=== PATIENT | male | born 1955 | race American Indian/Alaskan Native ===

== ENCOUNTER 2018-09-14 18:07 | Inpatient (IN) | payer MEDICARE ==
--- NOTE | 2018-09-14 18:27 | Emergency Department Report ---
ED Neuro Deficit HPI - General Chief Complaint: Neuro Symptoms/Deficit Stated Complaint: AMS/N/V Time Seen by Provider: 09/14/18 18:22 Source: patient, EMS Mode of arrival: Wheelchair Limitations: Altered Mental Status - History of Present Illness Initial Comments: Patient is a 62-year-old male presents emergency room originally for nausea vomiting, dizziness and feeling hot. While patient was in triage, patient developed aphasia and altered mental status. Code stroke was initiated in triage and patient was sent directly to CT. Last known well time is 1808. -: Sudden Location: speech, right face - Related Data Home Medications: Home Medications Medication Instructions Recorded Confirmed Last Taken AtorvaSTATin [Lipitor] 40 mg PO DAILY 09/14/18 09/14/18 Unknown AtorvaSTATin [Lipitor] 40 mg PO DAILY 09/14/18 09/14/18 Unknown Bimatoprost [Lumigan 0.01%] 1 drop OU HS 09/14/18 09/14/18 Unknown Carteolol HCl [Carteolol HCl 1%] 1 drop OU BID 09/14/18 09/14/18 Unknown Lisinopril/Hydrochlorothiazide 20 mg PO DAILY 09/14/18 09/14/18 Unknown [Zestoretic 20-12.5 mg] Metoprolol Succinate [Kapspargo 25 mg PO BID 09/14/18 09/14/18 Unknown Sprinkle] Perphenazine 8 mg PO HS 09/14/18 09/14/18 Unknown traZODone [Desyrel] 50 mg PO HS 09/14/18 09/14/18 Unknown Allergies/Adverse Reactions: Allergies Allergy/AdvReac Type Severity Reaction Status Date / Time No Known Allergies Allergy Unverified 09/14/18 18:13 ED Review of Systems ROS: Stated complaint: AMS/N/V Other details as noted in HPI Comment: Unobtainable due to pts medical conditions ED Past Medical Hx - Past Medical History Previous Medical History?: Yes Hx Hypertension: Yes - Surgical History Past Surgical History?: No - Family History Family history: no significant - Social History Smoking Status: Never Smoker Substance Use Type: None - Medications Home Medications: Home Medications Medication Instructions Recorded Confirmed Last Taken Type AtorvaSTATin [Lipitor] 40 mg PO DAILY 09/14/18 09/14/18 Unknown History AtorvaSTATin [Lipitor] 40 mg PO DAILY 09/14/18 09/14/18 Unknown History Bimatoprost [Lumigan 0.01%] 1 drop OU HS 09/14/18 09/14/18 Unknown History Carteolol HCl [Carteolol HCl 1%] 1 drop OU BID 09/14/18 09/14/18 Unknown History Lisinopril/Hydrochlorothiazide 20 mg PO DAILY 09/14/18 09/14/18 Unknown History [Zestoretic 20-12.5 mg] Metoprolol Succinate [Kapspargo 25 mg PO BID 09/14/18 09/14/18 Unknown History Sprinkle] Perphenazine 8 mg PO HS 09/14/18 09/14/18 Unknown History traZODone [Desyrel] 50 mg PO HS 09/14/18 09/14/18 Unknown History ED Neuro Physical Exam - General Limitations: Altered Mental Status General appearance: alert, in no apparent distress Suspected Stroke: Yes - Head Head exam: Present: atraumatic, normocephalic - Eye Eye exam: Present: normal appearance, PERRL Pupils: Present: normal accommodation - ENT ENT exam: Present: mucous membranes moist - Neck Neck exam: Present: normal inspection - Respiratory Respiratory exam: Present: normal lung sounds bilaterally. Absent: respiratory distress, wheezes, rales - Cardiovascular Cardiovascular Exam: Present: regular rate, normal rhythm. Absent: systolic murmur, diastolic murmur, rubs, gallop - GI/Abdominal GI/Abdominal exam: Present: soft, normal bowel sounds. Absent: distended, tenderness, guarding - Rectal Rectal exam: Present: deferred - Extremities Exam Extremities exam: Present: normal inspection - Back Exam Back exam: Present: normal inspection - Neurological Exam Neurological exam: Present: alert, altered - NIHSS Assessment Interval: Baseline 1a. Level of Consciousness: alert/keenly responsive 1b. LOC Questions: answers 1 question correctly 1c. LOC Commands: performs tasks correctly 2. Best Gaze: normal 3. Visual: no visual loss 4. Facial Palsy: partial paralysis 5b. Motor Arm Right: no drift 5a. Motor Arm Left: no drift 6a. Motor Leg Left: no drift 6b. Motor Leg Right: no drift 7. Limb Ataxia: absent 8. Sensory: normal 9. Best Language: severe aphasia 10. Dysarthria: severe dysarthria 11. Extinction/Inattention: no abnormality Total Score: 7 Stroke Severity: Moderate Stroke - Psychiatric Psychiatric exam: Present: normal affect, normal mood - Skin Skin exam: Present: warm, dry, intact, normal color. Absent: rash ED Course Vital Signs 09/14/18 09/14/18 09/14/18 18:51 18:54 18:58 Pulse Rate 89 59 L Pulse Rate [ 59 L Right Arm] Respiratory 14 Rate Respiratory 10 L Rate [Right Arm ] Blood Pressure 146/90 Blood Pressure 140/78 [Left] Blood Pressure 146/90 [Right Arm] O2 Sat by Pulse 97 Oximetry O2 Sat by Pulse 99 Oximetry [ Right Arm] 09/14/18 09/14/18 09/14/18 19:08 19:25 19:40 Pulse Rate 56 L 63 Pulse Rate [ 56 L 65 63 Right Arm] Respiratory 14 11 L Rate Respiratory 14 14 11 L Rate [Right Arm ] Blood Pressure 155/63 Blood Pressure 144/80 [Left] Blood Pressure 144/80 155/63 155/63 [Right Arm] O2 Sat by Pulse 97 99 Oximetry O2 Sat by Pulse 97 99 99 Oximetry [ Right Arm] 09/14/18 09/14/18 09/14/18 19:47 19:48 19:49 Pulse Rate 63 59 L 62 Pulse Rate [ Right Arm] Respiratory 11 L 14 15 Rate Respiratory Rate [Right Arm ] Blood Pressure 214/168 220/199 234/175 Blood Pressure [Left] Blood Pressure [Right Arm] O2 Sat by Pulse 100 100 Oximetry O2 Sat by Pulse Oximetry [ Right Arm] 09/14/18 09/14/18 09/14/18 19:50 19:51 19:53 Pulse Rate 68 65 Pulse Rate [ 68 Right Arm] Respiratory 14 14 Rate Respiratory 14 Rate [Right Arm ] Blood Pressure 234/175 234/175 Blood Pressure [Left] Blood Pressure 234/175 [Right Arm] O2 Sat by Pulse 100 98 Oximetry O2 Sat by Pulse 100 Oximetry [ Right Arm] 09/14/18 09/14/18 09/14/18 19:55 19:59 20:00 Pulse Rate 71 71 76 Pulse Rate [ Right Arm] Respiratory 17 13 16 Rate Respiratory Rate [Right Arm ] Blood Pressure 155/63 155/63 225/176 Blood Pressure [Left] Blood Pressure [Right Arm] O2 Sat by Pulse 99 99 100 Oximetry O2 Sat by Pulse Oximetry [ Right Arm] 09/14/18 09/14/18 09/14/18 20:05 20:09 20:20 Pulse Rate 72 61 Pulse Rate [ 72 64 Right Arm] Respiratory 12 12 Rate Respiratory 12 11 L Rate [Right Arm ] Blood Pressure 225/176 225/176 Blood Pressure [Left] Blood Pressure 225/176 138/81 [Right Arm] O2 Sat by Pulse 100 100 Oximetry O2 Sat by Pulse 100 99 Oximetry [ Right Arm] 09/14/18 09/14/18 20:29 20:44 Pulse Rate Pulse Rate [ 61 70 Right Arm] Respiratory Rate Respiratory 14 14 Rate [Right Arm ] Blood Pressure Blood Pressure [Left] Blood Pressure 138/81 124/67 [Right Arm] O2 Sat by Pulse Oximetry O2 Sat by Pulse 99 99 Oximetry [ Right Arm] - Reevaluation(s) Reevaluation #1: Radiologist called with negative CT scan of head. 09/14/18 18:41 Reevaluation #2: Neurologist seeing the patient and patient will be given TPA. 09/14/18 18:50 Reevaluation #3: Patient's blood pressure is significantly elevated. Patient will be given a nicardipine drip 09/14/18 19:51 Patient's blood pressure has improved. Patient is currently on nicardipine drip 09/14/18 20:27 0 Reevaluation #4: Patient's speech is improving. Patient's blood pressure is stable. 09/14/18 20:45 - Consultations Consultation #1: I discussed the case with neurologist. Neurologist recommends tPA and a CTA be done 09/14/18 19:04 Consultation #2: Hospitalist consult for admission. Hospitalist to admit patient. 09/14/18 21:14 - Lab Data Result diagrams: 09/14/18 19:38 09/14/18 19:38 Lab Results 09/14/18 09/14/18 09/14/18 Range/Units 18:46 19:38 19:38 WBC 10.2 (4.5-11.0) K/mm3 RBC 4.84 (3.65-5.03) M/mm3 Hgb 15.7 H (11.8-15.2) gm/dl Hct 44.3 (35.5-45.6) % MCV 92 (84-94) fl MCH 33 H (28-32) pg MCHC 36 H (32-34) % RDW 12.9 L (13.2-15.2) % Plt Count 208 (140-440) K/mm3 Lymph % (Auto) 18.1 (13.4-35.0) % [place]lette % (Auto) 8.9 H (0.0-7.3) % Eos % (Auto) 0.8 (0.0-4.3) % Baso % (Auto) 0.4 (0.0-1.8) % Lymph # 1.9 (1.2-5.4) K/mm3 Sublette # 0.9 H (0.0-0.8) K/mm3 Eos # 0.1 (0.0-0.4) K/mm3 Baso # 0.0 (0.0-0.1) K/mm3 Seg Neutrophils % 71.8 H (40.0-70.0) % Seg Neutrophils # 7.4 (1.8-7.7) K/mm3 PT 15.1 H (12.2-14.9) Sec. INR 1.22 H (0.87-1.13) APTT 32.4 (24.2-36.6) Sec. Thrombin Time (15.1-19.6) Sec. Sodium (137-145) mmol/L Potassium (3.6-5.0) mmol/L Chloride (98-107) mmol/L Carbon Dioxide (22-30) mmol/L Anion Gap mmol/L BUN (9-20) mg/dL Creatinine (0.8-1.5) mg/dL Estimated GFR ml/min BUN/Creatinine Ratio % Glucose (75-100) mg/dL POC Glucose 78 (70-105) Calcium (8.4-10.2) mg/dL Troponin T (0.00-0.029) ng/mL Urine Color (Yellow) Urine Turbidity (Clear) Urine pH (5.0-7.0) Ur Specific Nordman (1.003-1.030) Urine Protein (Negative) mg/dL Urine Glucose (UA) (Negative) mg/dL Urine Ketones (Negative) mg/dL Urine Blood (Negative) Urine Nitrite (Negative) Urine Bilirubin (Negative) Urine Urobilinogen (<2.0) mg/dL Ur Leukocyte Esterase (Negative) Urine WBC (Auto) (0.0-6.0) /HPF Urine RBC (Auto) (0.0-6.0) /HPF 09/14/18 09/14/18 09/14/18 Range/Units 19:38 19:38 20:35 WBC (4.5-11.0) K/mm3 RBC (3.65-5.03) M/mm3 Hgb (11.8-15.2) gm/dl Hct (35.5-45.6) % MCV (84-94) fl MCH (28-32) pg MCHC (32-34) % RDW (13.2-15.2) % Plt Count (140-440) K/mm3 Lymph % (Auto) (13.4-35.0) % [place] % (Auto) (0.0-7.3) % Eos % (Auto) (0.0-4.3) % Baso % (Auto) (0.0-1.8) % Lymph # (1.2-5.4) K/mm3 Sublette # (0.0-0.8) K/mm3 Eos # (0.0-0.4) K/mm3 Baso # (0.0-0.1) K/mm3 Seg Neutrophils % (40.0-70.0) % Seg Neutrophils # (1.8-7.7) K/mm3 PT (12.2-14.9) Sec. INR (0.87-1.13) APTT (24.2-36.6) Sec. Thrombin Time 24.3 H (15.1-19.6) Sec. Sodium 132 L (137-145) mmol/L Potassium 3.3 L (3.6-5.0) mmol/L Chloride 95.8 L (98-107) mmol/L Carbon Dioxide 20 L (22-30) mmol/L Anion Gap 20 mmol/L BUN 10 (9-20) mg/dL Creatinine 0.9 (0.8-1.5) mg/dL Estimated GFR > 60 ml/min BUN/Creatinine Ratio 11 % Glucose 92 (75-100) mg/dL POC Glucose (70-105) Calcium 8.7 (8.4-10.2) mg/dL Troponin T < 0.010 (0.00-0.029) ng/mL Urine Color Colorless (Yellow) Urine Turbidity Clear (Clear) Urine pH 7.0 (5.0-7.0) Ur Specific Nordman 1.025 (1.003-1.030) Urine Protein <15 mg/dl (Negative) mg/dL Urine Glucose (UA) Neg (Negative) mg/dL Urine Ketones Neg (Negative) mg/dL Urine Blood Neg (Negative) Urine Nitrite Neg (Negative) Urine Bilirubin Neg (Negative) Urine Urobilinogen < 2.0 (<2.0) mg/dL Ur Leukocyte Esterase Neg (Negative) Urine WBC (Auto) < 1.0 (0.0-6.0) /HPF Urine RBC (Auto) 2.0 (0.0-6.0) /HPF - EKG Data -: EKG Interpreted by [facility] EKG shows normal: sinus rhythm, intervals, ST-T waves Rate: normal Interpretation: other (axis deviation) - Radiology Data Radiology results: report reviewed CT angio head INDICATION / CLINICAL INFORMATION: 62 years Male; STROKE ALERT. Technique: Thin cut axial images obtained through the head during IV bolus contrast administration. Sagittal, coronal, and 3 plane MIP reconstructions performed by the technologist. NASCET type criteria used evaluate stenoses. Automated exposure control utilized for radiation reduction purposes. Findings: No priors. No significant narrowing seen in the anterior and posterior circulation. Distal branches of the anterior, middle, and posterior cerebral arteries are fairly symmetric in appearance and number. The most distal portion of the right posterior cerebral artery is not as well-visualized as the left, although no definitive stenosis is appreciated. Certainly, no signs of ischemia are seen in the right occipital lobe. No signs of aneurysm. There are small infundibula associated with the posterior communicating arteries bilaterally. Impression: No significant narrowing appreciated on this CTA of the head. Slight asymmetry seen in the distal [employer] territory on the right, compared with the left-this finding may be a normal variant. CT angio neck INDICATION / CLINICAL INFORMATION: 62 years Male; STROKE ALERT. TECHNIQUE: Thin cut axial images obtained through the head during IV bolus contrast administration. Sagittal, coronal, and 3 plane MIP reconstructions performed by the technologist. NASCET type criteria used evaluate stenoses. All CT scans at this location are performed using CT dose reduction for ALARA by means of automated exposure control. COMPARISON: None available. FINDINGS: Normal aortic arch branching seen. The common and internal carotid arteries are widely patent. Codominant vertebral system is seen with no significant stenosis appreciated. There is osseous foraminal narrowing on the left at C5-6 from uncinate hypertrophy. Similar findings seen on the right at C3-4. Mild disc disease seen at various levels. No definitive signs of significant canal stenosis or cord impingement seen. Small posterior central disc protrusion is seen at C3-4 as well. Remainder the surrounding soft tissues are grossly normal. IMPRESSION: No significant narrowing appreciated on this CTA of the neck. CT head/brain wo con INDICATION / CLINICAL INFORMATION: 62 years Male; neuro deficits <6hrs or sx present upon awakening. TECHNIQUE: Routine CT head without contrast. All CT scans at this location are performed using CT dose reduction for ALARA by means of automated exposure control. COMPARISON: None. FINDINGS: BRAIN / INTRACRANIAL CONTENTS: No acute hemorrhage, mass effect, midline shift, hydrocephalus, or acute, large territorial infarct. No chronic infarct or focal atrophy. Normal brain volume and ventricular/sulcal size for age. No significant white matter abnormality. CRANIOCERVICAL JUNCTION: No significant abnormality. ORBITS: No significant abnormality of visualized orbits. SINUSES / MASTOIDS: Mild mucosal thickening in the ethmoids. ADDITIONAL FINDINGS: None. IMPRESSION: 1. No focal mass, hemorrhage, hydrocephalus, or acute, large territorial infarct. - Medical Decision Making Patient is a 62-year-old male that came in with stroke symptoms. Patient found to have a CVA and given TPA. Patient responded well. Patient's blood pressure elevated placed on nicardipine drip. Patient had a CTA of the neck and head and were both negative for significant stenosis. Patient's CT of the head negative. Patient's EKG normal sinus rhythm with axis deviation. - Differential Diagnosis dizziness. Difficulty speaking. CVA. Weakness. Critical Care Time: Yes Critical care attestation.: If time is entered above; I have spent that time in minutes in the direct care of this critically ill patient, excluding procedure time. Critical Care Time: 55 minutes ED Disposition Clinical Impression: Aphasia, Hypertensive urgency Altered mental state Qualifiers: Altered mental status type: unspecified Qualified Code(s): R41.82 - Altered mental status, unspecified CVA (cerebral vascular accident) Qualifiers: CVA mechanism: unspecified Qualified Code(s): I63.9 - Cerebral infarction, unspecified Disposition: 09 OP ADMIT IP TO THIS HOSP Is pt being admited?: Yes Does the pt Need Aspirin: No Condition: Critical Time of Disposition: :14
[2018-09-14] MEDS ORDERED: ACTIVASE ONE (18:47)
[2018-09-14] MEDS ORDERED: NACL 0.9% IV ONE (18:49)
[2018-09-14] MEDS ORDERED: ACTIVASE IV ONE ×2 (18:49)
--- NOTE | 2018-09-14 18:49 | Cat Scan Report ---
CT head/brain wo con INDICATION / CLINICAL INFORMATION: 62 years Male; neuro deficits <6hrs or sx present upon awakening. TECHNIQUE: Routine CT head without contrast. All CT scans at this location are performed using CT dos e reduction for ALARA by means of automated exposure control. COMPARISON: None. FINDINGS: BRAIN / INTRACRANIAL CONTENTS: No acute hemorrhage, mass effect, midline shift, hydrocephalus, or acu te, large territorial infarct. No chronic infarct or focal atrophy. Normal brain volume and ventricul ar/sulcal size for age. No significant white matter abnormality. CRANIOCERVICAL JUNCTION: No significant abnormality. ORBITS: No significant abnormality of visualized orbits. SINUSES / MASTOIDS: Mild mucosal thickening in the ethmoids. ADDITIONAL FINDINGS: None. IMPRESSION: 1. No focal mass, hemorrhage, hydrocephalus, or acute, large territorial infarct. This exam was performed as part of a code stroke protocol. The exam was completed at 5:33 PM on 2018. The exam was reviewed at 5:[address] Hemphill was notified at 5:42 PM. Signer Name: José Antonio Porter MD, III Signed: 09/14/2018 6:44 PM Workstation Name: [id number]
--- NOTE | 2018-09-14 18:59 | Consultation ---
History of Present Illness History of present illness: [facility] Impression: Patient with aphasia and subtle right nasolabial fold flattening. Concern for LMCA ischemia with possible LVO given cortical signs of aphasia. Patient was unable to give verbal consent for tPA. No surrogate was immediately available. Case discussed with Dr. Hemphill and we are in agreement that the benefit or tPA outweighs the risk and treatment is warranted. He has no obvious contraindication per the history obtained by EMS and his reconciled medications. CTA head/neck will be ordered to eval for LMCA LVO. Differential Diagnosis: 1. Cardioembolic stroke 2. Small vessel disease/lacune 3. Thromboembolic, [id number] mechanism 4. Hypercoagulable state-related infarct 5. Transient ischemic attack 6. Thrombotic mechanism, large artery disease Comments: Door time: 1806 [facility] contacted: 1831 [facility] at bedside: 1834 NIHSS assessment time: 1839 Verbal tpa order: 1842 Pre-tPA BP: 133/82 Finger stick glucose: 76 Needle time: 185 Verbal Consent to tPA: (not applicable as patient is aphasic and cannot consent) I have explained to the patient/family/guardian the nature of the patients condition, the use of tPA fibrinolytic agent, and the benefits to be reasonably expected compared with alternative approaches. I have discussed the likelihood of major risks or complications of this procedure including (if applicable) but not limited to loss of limb function, brain damage, paralysis, hemorrhage, infection, complications from transfusion of blood components, drug reactions, blood clots and loss of life. I have also indicated that with any procedure there is always the possibility of an unexpected complication. I have explained the risks which include: 1. , Stroke or permanent neurologic injury (paralysis, coma, etc) 2. Worsening of stroke symptoms from swelling or bleeding in the brain 3. Bleeding in other parts of the body 4. Need for blood transfusions to replace blood or clotting factors 5. Allergic reaction to medications 6. Other unexpected complications All questions were answered and the patient/family/guardian express underst anding of the treatment plan and consent to the procedure. Our recommendations are outlined below. Recommendations: IV tPA dose = 8.3mg bolus, 74.3 mg infusion (measured weight 91.7kg) Routine post tPA monitoring including neuro checks and blood pressure control during/after treatment Monitor blood pressure Check blood pressure and NIHSS every 15 min for 2 h, then every 30 min for 6 h, and finally every hour for 16 h Systolic greater than 180 OR diastolic greater than 105: Option 1: Labetalol 10 mg IV for 1 - 2 min May repeat or double labetalol every 10 min to maximum dose of 300 mg, or give initial labetalol dose, then start labetalol drip at 2 - 8 mg/min. Option 2: Nicardipine 5 mg/h IV infusion as initial dose and titrate to desired effect by increasing 2.5 mg/h every 5 min to maximum of 15 mg/h; If blood pressure is not controlled by labetolol or nicardipine, consider sodium nitroprusside. Admission to ICU CT brain 24 hours post tPA NPO until swallowing screen performed and passed No antiplatelet agents or anticoagulants (including heparin for DVT prophylaxis) in first 24 hours No Bhakta catheter, nasogastric tube, arterial catheter or central venous catheter for 24 hr, unless absolutely necessary Telemetry Inpatient Neurology Consultation Stroke evaluation as per inpatient neurology recommendations Discussed with ED MD CC: stroke alert History of Present Illness Patient is a62 year old man with a history of HTN, mood disorder who presented to the ED with overheating and feeling lightheaded. His apartment apparently doesn't have AC, so he called EMS feeling like he might pass out from the heat. EMS arrived and he was normally interactive and moving well. Medications were gathered and reconciled (no blood thinners). He was transported to the ED and remained stable. On arrival in triage, he was noted to go aphasic as witnessed during the triage process at 1809. Stroke alert called. Diagnostic CT head wo - nothing acute Exam NIHSS score: 7 Profound mixed aphasia Medical Decision Making: - Extensive number of diagnosis or management options are considered above. - Extensive amount of complex data reviewed. - High risk of complication and/or morbidity or mortality are associated with differential diagnostic considerations above. - There may be Uncertain outcome and increased probability of prolonged functional impairment or high probability of severe prolonged functional impairment associated with some of these differential diagnosis. Medical Data Reviewed: 1.Data reviewed include clinical labs, radiology, Medical Tests; 2.Tests results discussed w/performing or interpreting physician; 3.Obtaining/reviewing old medical records; 4.Obtaining case history from another source; 5.Independent review of image, tracing or specimen. Medical Decision Making: - Extensive number of diagnosis or management options are considered above. - Extensive amount of complex data reviewed. - High risk of complication and/or morbidity or mortality are associated with differential diagnostic considerations above. - There may be Uncertain outcome and increased probability of prolonged functional impairment or high probability of severe prolonged functional impairment associated with some of these differential diagnosis. Medical Data Reviewed: 1.Data reviewed include clinical labs, radiology, Medical Tests; 2.Tests results discussed w/performing or interpreting physician; 3.Obtaining/reviewing old medical records; 4.Obtaining case history from another source; 5.Independent review of image, tracing or specimen. Patient was informed the Neurology Consult would happen via TeleHealth consult by way of interactive audio and video telecommunications and consented to receiving care in this manner. Medications and Allergies Allergies Allergy/AdvReac Type Severity Reaction Status Date / Time No Known Allergies Allergy Unverified 09/14/18 18:13 Active Meds: Active Medications Alteplase, Recombinant (Activase) 8.3 mg 0.09 mg/kg (8.3 mg) IV ONCE ONE; Protocol Stop: 09/14/18 18:50 Alteplase, Recombinant (Activase) 74.3 mg 0.81 mg/kg (74.3 mg) IV ONCE ONE; Protocol Stop: 09/14/18 18:50 - Level of Consciousness 1a. Level of Consciousness: alert/keenly responsive - LOC Questions 1b. LOC Questions: aphasic - LOC Command 1c. LOC Commands: performs no tasks correctly - Best Gaze 2. Best Gaze: normal - Visual 3. Visual: no visual loss - Facial Palsy 4. Facial Palsy: minor paralysis - Motor Arm 5a. Motor Arm Left: no drift 5b. Motor Arm Right: no drift - Motor Leg 6a. Motor Leg Left: no drift 6b. Motor Leg Right: no drift - Limb Ataxia 7. Limb Ataxia: absent - Sensory 8. Sensory: normal - Best Language 9. Best Language: severe aphasia - Dysarthria 10. Dysarthria: normal - Extinction and Inattention 11. Extinction/Inattention: no abnormality - Scoring Total Score: 7 Stroke Severity: Moderate Stroke
[2018-09-14 19:50] LABS: Basophils % (Auto) 0.4 % (0.0-1.8); Eosinophils # (Auto) 0.1 K/mm3 (0.0-0.4); Eosinophils % (Auto) 0.8 % (0.0-4.3); Hematocrit 44.3 % (35.5-45.6); Hemoglobin 15.7 gm/dl (11.8-15.2); Lymphocytes # (Auto) 1.9 K/mm3 (1.2-5.4); Lymphocytes % (Auto) 18.1 % (13.4-35.0); Mean Corpuscular HGB Conc 36 % (32-34); Mean Corpuscular Volume 92 fl (84-94); Monocytes # (Auto) 0.9 K/mm3 (0.0-0.8); Monocytes % (Auto) 8.9 % (0.0-7.3); Platelet Count 208 K/mm3 (140-440); Red Blood Count 4.84 M/mm3 (3.65-5.03); Red Cell Distribution Width 12.9 % (13.2-15.2)
[2018-09-14] MEDS ORDERED: CARDENE 50 MG in NACL 0.9% 250ML 230 ML IV SCH (20:00)
[2018-09-14 20:02] LABS: INR 1.22 (0.87-1.13)
[2018-09-14 20:03] LABS: Partial Thromboplastin Time 32.4 Sec. (24.2-36.6)
[2018-09-14 20:12] LABS: BUN/Creatinine Ratio 11; Blood Urea Nitrogen 10 mg/dL (9-20); Calcium 8.7 mg/dL (8.4-10.2); Hemolysis Index 9
--- NOTE | 2018-09-14 20:17 | Cat Scan Report ---
CT angio head INDICATION / CLINICAL INFORMATION: 62 years Male; STROKE ALERT. Technique: Thin cut axial images obtained through the head during IV bolus contrast administration. S agittal, coronal, and 3 plane MIP reconstructions performed by the technologist. NASCET type criteria used evaluate stenoses. Automated exposure control utilized for radiation reduction purposes. Findings: No priors. No significant narrowing seen in the anterior and posterior circulation. Distal branches of the anterior, middle, and posterior cerebral arteries are fairly symmetric in appe arance and number. The most distal portion of the right posterior cerebral artery is not as well-visu alized as the left, although no definitive stenosis is appreciated. Certainly, no signs of ischemia a re seen in the right occipital lobe. No signs of aneurysm. There are small infundibula associated with the posterior communicating arterie s bilaterally. Impression: No significant narrowing appreciated on this CTA of the head. Slight asymmetry seen in the distal [employer] territory on the right, compared with the left-this finding may be a normal variant. Signer Name: José Antonio Porter MD, III Signed: 09/14/2018 8:12 PM Workstation Name: [id number]
[2018-09-14 20:56] LABS: Bilirubin,Urine NEG (Negative); Blood,Urine NEG (Negative); Color,Urine Colorless (Yellow); Protein,Urine <15 mg/dL mg/dL (Negative); Urobilinogen,Urine < 2.0 mg/dL (<2.0)
--- NOTE | 2018-09-14 20:57 | Cat Scan Report ---
CT angio neck INDICATION / CLINICAL INFORMATION: 62 years Male; STROKE ALERT. TECHNIQUE: Thin cut axial images obtained through the head during IV bolus contrast administration. S agittal, coronal, and 3 plane MIP reconstructions performed by the technologist. NASCET type criteria used evaluate stenoses. All CT scans at this location are performed using CT dose reduction for ALAR A by means of automated exposure control. COMPARISON: None available. FINDINGS: Normal aortic arch branching seen. The common and internal carotid arteries are widely patent. Codominant vertebral system is seen with no significant stenosis appreciated. There is osseous foraminal narrowing on the left at C5-6 from uncinate hypertrophy. Similar findings seen on the right at C3-4. Mild disc disease seen at various levels. No definitive signs of significa nt canal stenosis or cord impingement seen. Small posterior central disc protrusion is seen at C3-4 a s well. Remainder the surrounding soft tissues are grossly normal. IMPRESSION: No significant narrowing appreciated on this CTA of the neck. Signer Name: José Antonio Porter MD, III Signed: 09/14/2018 8:52 PM Workstation Name: [id number]
[2018-09-14 20:58] LABS: WBC,Urine < 1.0 /HPF (0.0-6.0)
--- NOTE | 2018-09-14 21:06 | History and Physical Report ---
History of Present Illness Chief complaint: Unresponsive History of present illness: 62 YO Male with Obesity, HTN presents to ED for evaluation. Pt is unresponsive at time of my evaluation and unable to provide history. Pt history taken from EMS and ED staff. As per staff the patient called EMS for Nausea, and Vomiting. Upon EMS arrival the patient was found to be in distress. Pt subsequently reported having numbness, weakness, and developed dysarthria in the presence of EMS. Pt subsequently became confused. A code stroke was called and the patient transported to [facility]. Pt seen and evaluated in ED and found to have symptoms consistent with Acute CVA. Teleneurology consulted and patient was treated with TPA. Neurology consulted in ED. Pt admitted to ICU and initiated on CVA protocol. No further history obtainable at time of exam. NO prior admission for review. All listed medication reconciled at time of admission. Past History Past Medical History: hypertension, other (Obesity) Past Surgical History: No surgical history, Other (Reviewed: UTO) Social history: single. denies: smoking, alcohol abuse, prescription drug abuse Family history: no significant family history (Reviewed: UTO) Medications and Allergies Allergies Allergy/AdvReac Type Severity Reaction Status Date / Time No Known Allergies Allergy Unverified 09/14/18 18:13 Home Medications Medication Instructions Recorded Confirmed Last Taken Type AtorvaSTATin [Lipitor] 40 mg PO DAILY 09/14/18 09/14/18 Unknown History AtorvaSTATin [Lipitor] 40 mg PO DAILY 09/14/18 09/14/18 Unknown History Bimatoprost [Lumigan 0.01%] 1 drop OU HS 09/14/18 09/14/18 Unknown History Carteolol HCl [Carteolol HCl 1%] 1 drop OU BID 09/14/18 09/14/18 Unknown History Lisinopril/Hydrochlorothiazide 20 mg PO DAILY 09/14/18 09/14/18 Unknown History [Zestoretic 20-12.5 mg] Metoprolol Succinate [Kapspargo 25 mg PO BID 09/14/18 09/14/18 Unknown History Sprinkle] Perphenazine 8 mg PO HS 09/14/18 09/14/18 Unknown History traZODone [Desyrel] 50 mg PO HS 09/14/18 09/14/18 Unknown History Active Meds: Active Medications Nicardipine HCl 50 mg/ Sodium (Chloride) 250 mls @ 25 mls/hr IV TITR RANI; Protocol Last Titration: 09/14/18 20:40 Dose: 4 mg/hr, 20 mls/hr Documented by: Review of Systems ROS unobtainable: due to mental status Exam - Constitutional Vitals: Temp Pulse Resp BP Pulse Ox 70 14 124/67 99 09/14/18 20:44 09/14/18 20:44 09/14/18 20:44 09/14/18 20:44 General appearance: Present: mild distress - EENT Eyes: Present: miosis ENT: hearing decreased - Neck Neck: Present: supple, normal ROM - Respiratory Respiratory effort: normal Respiratory: bilateral: CTA - Cardiovascular Heart Sounds: Present: S1 & S2. Absent: rub, click - Extremities Extremities: pulses symmetrical, No edema Peripheral Pulses: within normal limits - Abdominal General gastrointestinal: Present: soft, non-tender, non-distended, normal bowel sounds Male genitourinary: Present: normal - Integumentary Integumentary: Present: clear, warm, dry - Musculoskeletal Musculoskeletal: generalized weakness - Psychiatric Psychiatric: no appropriate mood/affect, no intact judgment & insight, no memory intact - Neurologic Neurologic: no CNII-XII intact, focal deficits, no moves all extremities, no gait normal Results - Labs CBC & Chem 7: 09/14/18 19:38 09/14/18 19:38 Labs: Abnormal lab results 09/14/18 09/14/18 09/14/18 Range/Units 19:38 19:38 19:38 Hgb 15.7 H (11.8-15.2) gm/dl MCH 33 H (28-32) pg MCHC 36 H (32-34) % RDW 12.9 L (13.2-15.2) % [place] % (Auto) 8.9 H (0.0-7.3) % [place] # 0.9 H (0.0-0.8) K/mm3 Seg Neutrophils % 71.8 H (40.0-70.0) % PT 15.1 H (12.2-14.9) Sec. INR 1.22 H (0.87-1.13) Thrombin Time (15.1-19.6) Sec. Sodium 132 L (137-145) mmol/L Potassium 3.3 L (3.6-5.0) mmol/L Chloride 95.8 L (98-107) mmol/L Carbon Dioxide 20 L (22-30) mmol/L 09/14/18 Range/Units 19:38 Hgb (11.8-15.2) gm/dl MCH (28-32) pg MCHC (32-34) % RDW (13.2-15.2) % [place] % (Auto) (0.0-7.3) % [place] # (0.0-0.8) K/mm3 Seg Neutrophils % (40.0-70.0) % PT (12.2-14.9) Sec. INR (0.87-1.13) Thrombin Time 24.3 H (15.1-19.6) Sec. Sodium (137-145) mmol/L Potassium (3.6-5.0) mmol/L Chloride (98-107) mmol/L Carbon Dioxide (22-30) mmol/L Assessment and Plan - Patient Problems (1) CVA (cerebral vascular accident) Current Visit: Yes Status: Acute Qualifiers: CVA mechanism: unspecified Qualified Code(s): I63.9 - Cerebral infarction, unspecified Plan to address problem: CVA Protocol: Admit to ICU, TPA administered in ED, Neuro check, seizure precautions, CT Head, MRI Brain, MRA Brain, Echo, Carotid Doppler, Antiplatelet therapy in 24 hrs s/p tpa, lipid panel, neurology consulted, teleneurology consulted in ED, PT/OT/Speech therapy. The high probability of a clinically significant, sudden or life threatening deterioration of the [neuro,resp, ] system(s) required my full and direct attention, intervention and personal management. The aggregate critical care time was [65] minutes. This time is in addition to time spent performing reported procedures but includes the following: [x] Data Review and interpretation [x] Patient assessment and monitoring of vital signs [x] Documentation [x] Medication orders and management (2) Encephalopathy Current Visit: Yes Status: Acute Plan to address problem: CT head, neuro check, seizure precautions, supportive care. (3) Aphasia Current Visit: Yes Status: Acute Plan to address problem: Secondary to CVA, Speech consulted, (4) DVT prophylaxis Current Visit: Yes Status: Acute Plan to address problem: SCD to BLE while in bed,
[2018-09-14] MEDS ORDERED: MILK OF MAGNESIA PO PRN (21:07)
[2018-09-14] MEDS ORDERED: DULCOLAX PR PRN (21:07)
[2018-09-14] MEDS ORDERED: REGLAN PO PRN (21:07)
[2018-09-14] MEDS ORDERED: ZOFRAN IV PRN (21:07)
[2018-09-14] MEDS ORDERED: TYLENOL PO PRN (21:07)
[2018-09-14] MEDS ORDERED: SODIUM CHLORIDE FLUSH SYRINGE 10 ML IV PRN (21:07)
[2018-09-14] MEDS ORDERED: PHENERGAN PR PRN (21:07)
[2018-09-14] MEDS ORDERED: DESYREL PO ONE (22:15)
[2018-09-14] MEDS ORDERED: ZESTRIL ONE (22:15)
[2018-09-14] MEDS ORDERED: TYLENOL ONE (22:15)
[2018-09-14] MEDS: DESYREL PO SCH (22:16)
[2018-09-14] MEDS: CARTEOLOL HCL OP SCH (23:26)
[2018-09-14] MEDS: TRILAFON PO SCH (23:28)
[2018-09-15] MEDS ORDERED: ASPIRIN PO SCH (10:00)
[2018-09-15 10:20] LABS: Chol/HDL Ratio 3.7 %
[2018-09-15] MEDS: CARTEOLOL HCL OP SCH ×2 (10:35→21:22)
--- NOTE | 2018-09-15 12:46 | Consultation ---
History of Present Illness Consult date: 09/15/18 Requesting physician: MATT LUKE Reason for consult: other (Acute CVA) History of present illness: PULMONARY/CCM CONSULT NOTE (Full dictation # [id number]) Please see dictated notes for full details Past History Past Medical History: hypertension, other (Obesity) Past Surgical History: No surgical history, Other (Reviewed: UTO) Social history: single. denies: smoking, alcohol abuse, prescription drug abuse Family history: no significant family history (Reviewed: UTO) Medications and Allergies Allergies Allergy/AdvReac Type Severity Reaction Status Date / Time No Known Allergies Allergy Unverified 09/14/18 18:13 Home Medications Medication Instructions Recorded Confirmed Last Taken Type AtorvaSTATin [Lipitor] 40 mg PO DAILY 09/14/18 09/14/18 Unknown History AtorvaSTATin [Lipitor] 40 mg PO DAILY 09/14/18 09/14/18 Unknown History Bimatoprost [Lumigan 0.01%] 1 drop OU HS 09/14/18 09/14/18 Unknown History Carteolol HCl [Carteolol HCl 1%] 1 drop OU BID 09/14/18 09/14/18 Unknown History Lisinopril/Hydrochlorothiazide 20 mg PO DAILY 09/14/18 09/14/18 Unknown History [Zestoretic 20-12.5 mg] Metoprolol Succinate [Kapspargo 25 mg PO BID 09/14/18 09/14/18 Unknown History Sprinkle] Perphenazine 8 mg PO HS 09/14/18 09/14/18 Unknown History traZODone [Desyrel] 50 mg PO HS 09/14/18 09/14/18 Unknown History Active Meds: Active Medications Acetaminophen (Tylenol) 650 mg PO Q4H PRN PRN Reason: Pain, Mild (1-3) Last Admin: 09/14/18 22:16 Dose: 650 mg Documented by: Aspirin (Aspirin) 325 mg PO QDAY [facility] Atorvastatin Calcium (Lipitor) 40 mg PO QHS [facility] Last Admin: 09/14/18 22:16 Dose: 40 mg Documented by: Bisacodyl (Dulcolax) 10 mg MS QDAY PRN PRN Reason: Constipation Enoxaparin Sodium (Lovenox) 40 mg SUB-Q QDAY@2200 RANI Latanoprost (Latanoprost 0.005%) 1 drops OU QHS [facility] Magnesium Hydroxide (Milk Of Magnesia) 30 ml PO Q4H PRN PRN Reason: Constipation Metoclopramide HCl (Reglan) 10 mg PO Q6H PRN PRN Reason: Nausea And Vomiting Miscellaneous Medication (Carteolol Hcl [Carteolol Hcl 1%]) 1 drop OP BID [facility] Last Admin: 09/15/18 10:35 Dose: 1 drop Documented by: Ondansetron HCl (Zofran) 4 mg IV Q8H PRN PRN Reason: Nausea And Vomiting Perphenazine (Trilafon) 8 mg PO [facility] Last Admin: 09/14/18 23:28 Dose: 8 mg Documented by: Potassium Chloride (K-Dur) 40 meq PO ONCE ONE Stop: 09/15/18 13:01 Promethazine HCl (Phenergan) 25 mg MS Q6H PRN PRN Reason: Nausea And Vomiting Sodium Chloride (Sodium Chloride Flush Syringe 10 Ml) 10 ml IV PRN PRN PRN Reason: LINE FLUSH Trazodone HCl (Desyrel) 50 mg PO [facility] Last Admin: 09/14/18 22:16 Dose: 50 mg Documented by: Physical Examination Vital signs: Vital Signs Pulse BP 89 146/90 09/14/18 18:51 09/14/18 18:51 Results - Laboratory Findings CBC and BMP: 09/14/18 19:38 09/14/18 19:38 PT/INR, D-dimer PT 15.1 Sec. (12.2-14.9) H 09/14/18 19:38 INR 1.22 (0.87-1.13) H 09/14/18 19:38 Abnormal lab findings: Abnormal Labs 09/14/18 09/14/18 09/14/18 19:38 19:38 19:38 Hgb 15.7 H MCH 33 H MCHC 36 H RDW 12.9 L [place] % (Auto) 8.9 H [place] # 0.9 H Seg Neutrophils % 71.8 H PT 15.1 H INR 1.22 H Thrombin Time Sodium 132 L Potassium 3.3 L Chloride 95.8 L Carbon Dioxide 20 L Triglycerides HDL Cholesterol 09/14/18 09/15/18 19:38 09:45 Hgb MCH MCHC RDW [place] % (Auto) [place] # Seg Neutrophils % PT INR Thrombin Time 24.3 H Sodium Potassium Chloride Carbon Dioxide Triglycerides 152 H HDL Cholesterol 31 L
[2018-09-15] MEDS ORDERED: K-DUR PO ONE (13:00)
--- NOTE | 2018-09-15 13:52 | Progress Note ---
Assessment and Plan / CVA (cerebral vascular accident) CVA Protocol: Admitted to ICU, TPA administered in ED, cont Neuro check, seizure precautions, CT Head no acute infract, MRI Brain, Echo, Carotid Doppler, pending cont Antiplatelet therapy in 24 hrs s/p tpa, neurology consulted, ordered PT/OT/Speech therapy. transfer to tele today / Encephalopathy now resolved, follow clinically /Hypokalemia, repleted /Aphasia, resolved / DVT prophylaxis SCD to BLE while in bed, Subjective Date of service: 09/15/18 Interval history: Patient seen and examined denies any focal weakness tolerating diet, MRI pending Objective - Constitutional Vitals: Vital Signs - 12hr 09/15/18 09/15/18 09/15/18 02:00 02:04 02:11 Temperature Pulse Rate 62 64 Pulse Rate [ From Monitor] Pulse Rate [ 75 Right Arm] Respiratory 14 12 Rate Respiratory 12 Rate [Right Arm ] Blood Pressure 106/53 96/52 Blood Pressure 105/51 [Right Arm] O2 Sat by Pulse 97 95 Oximetry O2 Sat by Pulse 97 Oximetry [ Right Arm] 09/15/18 09/15/18 09/15/18 02:21 02:30 02:41 Temperature Pulse Rate 61 75 54 L Pulse Rate [ From Monitor] Pulse Rate [ Right Arm] Respiratory 12 12 11 L Rate Respiratory Rate [Right Arm ] Blood Pressure 96/52 105/51 105/51 Blood Pressure [Right Arm] O2 Sat by Pulse 95 97 99 Oximetry O2 Sat by Pulse Oximetry [ Right Arm] 09/15/18 09/15/18 09/15/18 02:51 03:00 03:04 Temperature Pulse Rate 57 L 53 L Pulse Rate [ From Monitor] Pulse Rate [ 53 L Right Arm] Respiratory 12 11 L Rate Respiratory 11 L Rate [Right Arm ] Blood Pressure 105/51 97/42 Blood Pressure 97/42 [Right Arm] O2 Sat by Pulse 93 97 Oximetry O2 Sat by Pulse 98 Oximetry [ Right Arm] 09/15/18 09/15/18 09/15/18 03:11 03:21 03:31 Temperature Pulse Rate 54 L 67 58 L Pulse Rate [ From Monitor] Pulse Rate [ Right Arm] Respiratory 11 L 14 16 Rate Respiratory Rate [Right Arm ] Blood Pressure 105/51 105/51 103/41 Blood Pressure [Right Arm] O2 Sat by Pulse 97 98 100 Oximetry O2 Sat by Pulse Oximetry [ Right Arm] 09/15/18 09/15/18 09/15/18 03:41 03:51 04:00 Temperature 98.8 F Pulse Rate 59 L 63 61 Pulse Rate [ From Monitor] Pulse Rate [ Right Arm] Respiratory 14 11 L 12 Rate Respiratory Rate [Right Arm ] Blood Pressure 103/41 103/41 82/35 Blood Pressure [Right Arm] O2 Sat by Pulse 97 99 98 Oximetry O2 Sat by Pulse Oximetry [ Right Arm] 09/15/18 09/15/18 09/15/18 04:04 04:11 04:21 Temperature Pulse Rate 64 68 Pulse Rate [ From Monitor] Pulse Rate [ 61 Right Arm] Respiratory 11 L 12 Rate Respiratory 12 Rate [Right Arm ] Blood Pressure 82/35 82/35 Blood Pressure 82/35 [Right Arm] O2 Sat by Pulse 98 97 98 Oximetry O2 Sat by Pulse 98 Oximetry [ Right Arm] 09/15/18 09/15/18 09/15/18 04:30 04:41 04:51 Temperature Pulse Rate 66 53 L 55 L Pulse Rate [ From Monitor] Pulse Rate [ Right Arm] Respiratory 10 L 12 9 L Rate Respiratory Rate [Right Arm ] Blood Pressure 86/36 86/36 89/57 Blood Pressure [Right Arm] O2 Sat by Pulse 98 97 97 Oximetry O2 Sat by Pulse Oximetry [ Right Arm] 09/15/18 09/15/18 09/15/18 05:00 05:11 05:21 Temperature Pulse Rate 58 L 52 L 60 Pulse Rate [ From Monitor] Pulse Rate [ Right Arm] Respiratory 16 11 L 14 Rate Respiratory Rate [Right Arm ] Blood Pressure 90/63 90/63 97/64 Blood Pressure [Right Arm] O2 Sat by Pulse 98 98 93 Oximetry O2 Sat by Pulse Oximetry [ Right Arm] 09/15/18 09/15/18 09/15/18 05:31 05:41 05:51 Temperature Pulse Rate 60 58 L 59 L Pulse Rate [ From Monitor] Pulse Rate [ Right Arm] Respiratory 14 18 17 Rate Respiratory Rate [Right Arm ] Blood Pressure 82/10 82/10 82/10 Blood Pressure [Right Arm] O2 Sat by Pulse 97 97 99 Oximetry O2 Sat by Pulse Oximetry [ Right Arm] 09/15/18 09/15/18 09/15/18 06:00 06:01 06:04 Temperature Pulse Rate 73 50 L Pulse Rate [ From Monitor] Pulse Rate [ 50 L Right Arm] Respiratory 15 14 Rate Respiratory 14 Rate [Right Arm ] Blood Pressure 108/66 Blood Pressure 108/66 [Right Arm] O2 Sat by Pulse 96 98 Oximetry O2 Sat by Pulse 96 Oximetry [ Right Arm] 09/15/18 09/15/18 09/15/18 06:10 06:20 06:30 Temperature Pulse Rate 56 L 54 L 65 Pulse Rate [ From Monitor] Pulse Rate [ Right Arm] Respiratory 11 L 12 12 Rate Respiratory Rate [Right Arm ] Blood Pressure 108/66 108/66 113/69 Blood Pressure [Right Arm] O2 Sat by Pulse 99 95 96 Oximetry O2 Sat by Pulse Oximetry [ Right Arm] 09/15/18 09/15/18 09/15/18 06:41 06:51 07:00 Temperature Pulse Rate 53 L 58 L 56 L Pulse Rate [ From Monitor] Pulse Rate [ 59 L Right Arm] Respiratory 10 L 10 L 12 Rate Respiratory 15 Rate [Right Arm ] Blood Pressure 113/69 113/69 112/66 Blood Pressure 112/66 [Right Arm] O2 Sat by Pulse 97 99 96 Oximetry O2 Sat by Pulse 96 Oximetry [ Right Arm] 09/15/18 09/15/18 09/15/18 07:11 07:21 07:30 Temperature Pulse Rate 55 L 63 54 L Pulse Rate [ From Monitor] Pulse Rate [ Right Arm] Respiratory 11 L 14 12 Rate Respiratory Rate [Right Arm ] Blood Pressure 112/66 112/66 101/61 Blood Pressure [Right Arm] O2 Sat by Pulse 98 98 97 Oximetry O2 Sat by Pulse Oximetry [ Right Arm] 09/15/18 09/15/18 09/15/18 07:41 07:51 08:00 Temperature 98.4 F Pulse Rate 55 L 53 L 60 Pulse Rate [ 58 L From Monitor] Pulse Rate [ 58 L Right Arm] Respiratory 15 15 13 Rate Respiratory 14 Rate [Right Arm ] Blood Pressure 101/61 101/61 109/68 Blood Pressure 109/68 [Right Arm] O2 Sat by Pulse 98 97 98 Oximetry O2 Sat by Pulse 97 Oximetry [ Right Arm] 09/15/18 09/15/18 09/15/18 08:11 08:21 08:30 Temperature Pulse Rate 81 52 L 52 L Pulse Rate [ From Monitor] Pulse Rate [ Right Arm] Respiratory 13 13 11 L Rate Respiratory Rate [Right Arm ] Blood Pressure 109/68 109/68 99/65 Blood Pressure [Right Arm] O2 Sat by Pulse 98 98 99 Oximetry O2 Sat by Pulse Oximetry [ Right Arm] 09/15/18 09/15/18 09/15/18 08:41 08:51 09:00 Temperature Pulse Rate 60 60 65 Pulse Rate [ From Monitor] Pulse Rate [ 57 L Right Arm] Respiratory 12 17 10 L Rate Respiratory 13 Rate [Right Arm ] Blood Pressure 99/65 99/65 108/65 Blood Pressure 108/65 [Right Arm] O2 Sat by Pulse 97 98 99 Oximetry O2 Sat by Pulse 98 Oximetry [ Right Arm] 09/15/18 09/15/18 09/15/18 09:11 09:21 09:30 Temperature Pulse Rate 59 L 60 56 L Pulse Rate [ From Monitor] Pulse Rate [ Right Arm] Respiratory 15 10 L 21 Rate Respiratory Rate [Right Arm ] Blood Pressure 108/65 108/65 110/65 Blood Pressure [Right Arm] O2 Sat by Pulse 99 100 100 Oximetry O2 Sat by Pulse Oximetry [ Right Arm] 09/15/18 09/15/18 09/15/18 09:41 09:51 10:00 Temperature Pulse Rate 54 L 58 L 60 Pulse Rate [ 60 From Monitor] Pulse Rate [ 56 L Right Arm] Respiratory 11 L 18 18 Rate Respiratory 22 Rate [Right Arm ] Blood Pressure 110/65 110/65 115/74 Blood Pressure 115/74 [Right Arm] O2 Sat by Pulse 99 100 100 Oximetry O2 Sat by Pulse 100 Oximetry [ Right Arm] 09/15/18 09/15/18 09/15/18 10:11 10:21 11:00 Temperature Pulse Rate 56 L 55 L Pulse Rate [ From Monitor] Pulse Rate [ 56 L Right Arm] Respiratory 17 20 Rate Respiratory 22 Rate [Right Arm ] Blood Pressure 115/74 115/74 Blood Pressure 115/74 [Right Arm] O2 Sat by Pulse 100 99 Oximetry O2 Sat by Pulse 100 Oximetry [ Right Arm] 09/15/18 11:59 Temperature Pulse Rate Pulse Rate [ From Monitor] Pulse Rate [ Right Arm] Respiratory Rate Respiratory Rate [Right Arm ] Blood Pressure Blood Pressure [Right Arm] O2 Sat by Pulse 99 Oximetry O2 Sat by Pulse Oximetry [ Right Arm] General appearance: Present: no acute distress, well-nourished - EENT Eyes: PERRL, EOM intact ENT: hearing intact, clear oral mucosa Ears: bilateral: normal - Neck Neck: supple, normal ROM - Respiratory Respiratory effort: normal Respiratory: bilateral: CTA - Cardiovascular Rhythm: regular Heart Sounds: Present: S1 & S2. Absent: gallop, rub Extremities: pulses intact, No edema, normal color, Full ROM - Gastrointestinal General gastrointestinal: Present: soft, non-tender, non-distended, normal bowel sounds - Integumentary Integumentary: clear, warm, dry - Musculoskeletal Musculoskeletal: 1, strength equal bilaterally - Neurologic Neurologic: moves all extremities - Psychiatric Psychiatric: memory intact, appropriate mood/affect, intact judgment & insight - Labs CBC & Chem 7: 09/14/18 19:38 09/14/18 19:38 Labs: Abnormal lab results 09/14/18 09/14/18 09/14/18 Range/Units 19:38 19:38 19:38 Hgb 15.7 H (11.8-15.2) gm/dl MCH 33 H (28-32) pg MCHC 36 H (32-34) % RDW 12.9 L (13.2-15.2) % [place] % (Auto) 8.9 H (0.0-7.3) % [place] # 0.9 H (0.0-0.8) K/mm3 Seg Neutrophils % 71.8 H (40.0-70.0) % PT 15.1 H (12.2-14.9) Sec. INR 1.22 H (0.87-1.13) Thrombin Time (15.1-19.6) Sec. Sodium 132 L (137-145) mmol/L Potassium 3.3 L (3.6-5.0) mmol/L Chloride 95.8 L (98-107) mmol/L Carbon Dioxide 20 L (22-30) mmol/L Triglycerides (2-149) mg/dL HDL Cholesterol (40-59) mg/dL 09/14/18 09/15/18 Range/Units 19:38 09:45 Hgb (11.8-15.2) gm/dl MCH (28-32) pg MCHC (32-34) % RDW (13.2-15.2) % [place] % (Auto) (0.0-7.3) % [place] # (0.0-0.8) K/mm3 Seg Neutrophils % (40.0-70.0) % PT (12.2-14.9) Sec. INR (0.87-1.13) Thrombin Time 24.3 H (15.1-19.6) Sec. Sodium (137-145) mmol/L Potassium (3.6-5.0) mmol/L Chloride (98-107) mmol/L Carbon Dioxide (22-30) mmol/L Triglycerides 152 H (2-149) mg/dL HDL Cholesterol 31 L (40-59) mg/dL
--- NOTE | 2018-09-15 14:07 | Magnetic Resonance Report ---
MRI BRAIN WITHOUT CONTRAST INDICATION / CLINICAL INFORMATION: Right-sided weakness. TECHNIQUE: Multiplanar, multisequence MR images of the brain were obtained. COMPARISON: None available. FINDINGS: BRAIN / INTRACRANIAL CONTENTS: No acute ischemia, acute hemorrhage, mass effect, midline shift, or hy drocephalus. No chronic infarct or significant atrophy. No significant demyelinating changes. Ventri cular and cisternal size appears normal for the patient's age. CRANIOCERVICAL JUNCTION: No significant abnormality. VASCULAR FLOW-VOIDS: No significant abnormality. ORBITS: No significant abnormality of visualized orbits. SINUSES / MASTOIDS: No significant abnormality of visualized sinuses and mastoid air cells. ADDITIONAL FINDINGS: None. IMPRESSION: 1. No evidence of acute infarct or other acute intracranial abnormality. Signer Name: Pratik Kemp MD Signed: 09/15/2018 2:03 PM Workstation Name: [id number]
--- NOTE | 2018-09-15 14:52 | Vascular Lab Report ---
BILATERAL CAROTID DOPPLER ULTRASOUND INDICATION : stroke TECHNIQUE: Grayscale and color Doppler imaging performed through the neck. COMPARISON: None FINDINGS: Right: There is minimal calcified plaque in the carotid bulb. Peak systolic velocity in the CCA is 91 cm/s with end-diastolic velocity of 10 cm/s. Peak systolic velocity in the proximal ICA is 73 cm/s with end-diastolic velocity of 24 cm/s. ICA to CCA ratio is less than 2. There is antegrade flow in the ECA and the vertebral artery. Left: There is minimal calcified plaque in the carotid bulb. Peak systolic velocity in the CCA is 89 cm/s with end-diastolic velocity of 9 cm/s. Peak systolic velocity in the proximal ICA is 81 cm/s wit h end-diastolic velocity of 24 cm/s. ICA to CCA ratio is less than 2. There is antegrade flow in the ECA and the vertebral artery. IMPRESSION: No hemodynamically significant stenosis by NASCET criteria. Signer Name: Pranay Flannery Jr, MD Signed: 09/15/2018 2:47 PM Workstation Name: [id number]
--- NOTE | 2018-09-15 16:28 | Consultation ---
History of Present Illness Consult date: 09/15/18 Requesting physician: MATT LUKE Reason for Consult: altered mental status, aphasia Chief complaint: episode of right arm numbness, then loss of memory even of his name, left temporal headache History of present illness: This 62 year old right handed white male states that at 4 or 5 pm yesterday, he noted right arm numbness hand to elbow lasting 10 min, then could not give his name for 2 hours, then gradual improvement. Had some left church headache with some nausea starting 8 pm that day, and some this morning but gone now. Was in home of friend with 83 degrees environment, describes orthostasis. Recalls repetitive speech and some retrograde amnesia yesterday. Has schizophrenia, off all meds for a month, meds were not ready when he went to get them. Was never on aspirin. Homeless then staying with friend for a month but sometimes power out since friend can't always pay for power. Can't tell me name of med for his schizophrenia but perphenazine is listed and is already ordered. MRI negative except some periventricular FLAIR signal radial to and adjacent to right occipital horn. CTAs of head and neck ok. PMH: Medical: schizophrenia, glaucoma, hyperlipidemia, hypertension Surgeries: none SH: no tobacco since 1979, no ETOH, no illicit drugs, single no children, retired from [employer] FH: all 4 GPs with CVAs, mother with CVA. Unknown if hypertension, DM in brother, neg for epilepsy ROS: sinus headaches, dizziness as noted, unknown if snoring, sometimes naps but not dozing or sleepy driving. Memory usually ok, no paresthesias usually. General Physical Exam: General appearance: well developed but obese mid 60's white male in NAD. HEENT: intact. Neck: supple, no bruits. Heart: very distant sounds, no murmur heard. Extremities: 2+ DPs, no edema. Neurologic Exam: Mental Status: AAOX3, speech clear, names well, info good, some calculation err ors but not good at math, can't do 5+7, can't spell backwards correctly, abstracts well, no R-L confusion. Cranial Nerves: card full, no pap, (+) SVPs, small pupils but PERRLA, EOMs full, sensory ok, no facial weakness, Paz midline, gags positive, shrug 5 X 2, tongue midline. Cerebellar: finger to nose and heel to marmolejo intact. Sensory: intact to primary modalities and DSS. Motor Upper Extremities: no drift or pronation, rig manager are 5, Saadia are normal. Motor Lower Extremities: no leg lag: IP, quads, anterior tibials and gastrocnemii are 5. Saadia are normal. Reflexes: Jaw jerk and snout are negative, palmomental strongly positive left but negative right. Triceps, biceps and brachioradialis are trace. Dante's is negative X 2. Knee jerks are trace to 1, ankle jerks are 1+ right and trace left becoming 2 left with reinforcement. Toes are upgoing right and downgoing left to Babinski testing. Past History Past Medical History: hypertension, other (Obesity) Past Surgical History: No surgical history, Other (Reviewed: UTO) Social history: single. denies: smoking, alcohol abuse, prescription drug abuse Family history: no significant family history (Reviewed: UTO) Medications and Allergies Allergies Allergy/AdvReac Type Severity Reaction Status Date / Time No Known Allergies Allergy Unverified 09/14/18 18:13 Home Medications Medication Instructions Recorded Confirmed Last Taken Type AtorvaSTATin [Lipitor] 40 mg PO DAILY 09/14/18 09/14/18 Unknown History AtorvaSTATin [Lipitor] 40 mg PO DAILY 09/14/18 09/14/18 Unknown History Bimatoprost [Lumigan 0.01%] 1 drop OU HS 09/14/18 09/14/18 Unknown History Carteolol HCl [Carteolol HCl 1%] 1 drop OU BID 09/14/18 09/14/18 Unknown History Lisinopril/Hydrochlorothiazide 20 mg PO DAILY 09/14/18 09/14/18 Unknown History [Zestoretic 20-12.5 mg] Metoprolol Succinate [Kapspargo 25 mg PO BID 09/14/18 09/14/18 Unknown History Sprinkle] Perphenazine 8 mg PO HS 09/14/18 09/14/18 Unknown History traZODone [Desyrel] 50 mg PO HS 09/14/18 09/14/18 Unknown History Active Meds: Active Medications Acetaminophen (Tylenol) 650 mg PO Q4H PRN PRN Reason: Pain, Mild (1-3) Last Admin: 07/28/19 22:16 Dose: 650 mg Documented by: Aspirin (Aspirin) 325 mg PO QDAY [facility] Atorvastatin Calcium (Lipitor) 40 mg PO QHS [facility] Last Admin: 09/14/18 22:16 Dose: 40 mg Documented by: Bisacodyl (Dulcolax) 10 mg [place] QDAY PRN PRN Reason: Constipation Enoxaparin Sodium (Lovenox) 40 mg SUB-Q QDAY@2200 [facility] Latanoprost (Latanoprost 0.005%) 1 drops OU QHS [facility] Magnesium Hydroxide (Milk Of Magnesia) 30 ml PO Q4H PRN PRN Reason: Constipation Metoclopramide HCl (Reglan) 10 mg PO Q6H PRN PRN Reason: Nausea And Vomiting Miscellaneous Medication (Carteolol Hcl [Carteolol Hcl 1%]) 1 drop OP BID [facility] Last Admin: 09/15/18 10:35 Dose: 1 drop Documented by: Ondansetron HCl (Zofran) 4 mg IV Q8H PRN PRN Reason: Nausea And Vomiting Perphenazine (Trilafon) 8 mg PO [facility] Last Admin: 09/14/18 23:28 Dose: 8 mg Documented by: Promethazine HCl (Phenergan) 25 mg [place] Q6H PRN PRN Reason: Nausea And Vomiting Sodium Chloride (Sodium Chloride Flush Syringe 10 Ml) 10 ml IV PRN PRN PRN Reason: LINE FLUSH Trazodone HCl (Desyrel) 50 mg PO [facility] Last Admin: 09/14/18 22:16 Dose: 50 mg Documented by: Physical Examination - Vital Signs Vital Signs: Vital Signs Pulse BP 89 146/90 09/14/18 18:51 09/14/18 18:51 Results - Laboratory Findings CBC and BMP: 09/14/18 19:38 09/14/18 19:38 Abnormal Lab Findings: Abnormal Labs 09/14/18 09/14/18 09/14/18 19:38 19:38 19:38 Hgb 15.7 H MCH 33 H MCHC 36 H RDW 12.9 L [place] % (Auto) 8.9 H [place] # 0.9 H Seg Neutrophils % 71.8 H PT 15.1 H INR 1.22 H Thrombin Time Sodium 132 L Potassium 3.3 L Chloride 95.8 L Carbon Dioxide 20 L Triglycerides HDL Cholesterol 09/14/18 09/15/18 19:38 09:45 Hgb MCH MCHC RDW [place] % (Auto) [place] # Seg Neutrophils % PT INR Thrombin Time 24.3 H Sodium Potassium Chloride Carbon Dioxide Triglycerides 152 H HDL Cholesterol 31 L Assessment and Plan Impression: 1. Transient global amnesia (TGA) 2. Orthostatic dizziness Plan: 1. I explained transient global amnesia which I explained as vascular steal from memory areas by adjacent brain areas due to stress or physical exertion. Told him memory problems can persist for several days. 2. Explained calf tensing for orthostasis and printed out instructions along with description of TGA. 3. Duplex of carotids ok. Echo with bubbles pending. 4. Ok for discharge but should avoid stress of high heat inside or out. 50 min spent including discussion of TGA and orthostatic dizziness. Thanks for an interesting consultation on this mid 60's white male. Signing off, call for any questions.
[2018-09-15] MEDS: DESYREL PO SCH (21:21)
[2018-09-15] MEDS: ASPIRIN PO SCH (21:21)
[2018-09-15] MEDS: TRILAFON PO SCH (21:21)
[2018-09-15] MEDS: LATANOPROST 0.005% OU SCH (21:22)
[2018-09-15] MEDS ORDERED: LOVENOX SUB-Q SCH (22:00)
--- NOTE | 2018-09-16 00:57 | Consultation ---
PULMONARY/CRITICAL CARE CONSULTATION CONSULTING PHYSICIAN: Jenn Edwards MD REASON FOR CONSULTATION: Acute CVA, status post TPA. CHIEF COMPLAINT AND HISTORY OF PRESENT ILLNESS: As follows: The patient is a 62-year-old male with past medical history significant amongst other things for a diagnosis of hypertension as well as being obese, came into the Emergency Room, complaining of some nausea, vomiting, dizziness, feeling hot. He states before he came into the hospital, he actually noticed some numbness to the right hand and that he could not remember really anything, could not remember his name. He seemed to be transfixed until they got to the Emergency Room. He also had an aphasia. In the ER, a code stroke was called. He was sent to CT scan. His last known well time was within the range for administration of TPA. He was cleared through the checklist and received TPA. Post-TPA, he is transferred to the Intensive Care Unit for continued observation. When I stopped by to see him, he was resting in bed. He was using the right hand better. He felt like overall his symptoms were improved. He was talking to me and did not have a significant slur. He denies any history of tobacco use or abuse whatsoever. He, however, admits to nonrestorative sleep as well as snoring and seems to have been told that he has had apneas at night. This really is as much of the history of presentation. He denied loss of consciousness. He denied any new onset leg pain or swelling either unilaterally or bilaterally or any suggestion of venous thromboembolic event/DVT. PAST MEDICAL HISTORY: Again, obesity, hypertension. I believe he says hyperlipidemia. PAST SURGICAL HISTORY: Denies. MEDICATIONS: He was on at the time I stopped by to see him were reviewed, pertinent medications included the following: He was on Tylenol 650 mg p.o. q. 4 hours p.r.n. mild pain or fevers, aspirin 325 mg p.o. daily, Lipitor 40 mg p.o. at bedtime, p.r.n. Dulcolax suppositories, latanoprost 0.005% eye drops one drop to both eyes daily at bedtime, Reglan 10 mg p.o. q. 6 hours p.r.n. nausea and vomiting, Zofran 4 mg IV q. 8 hours p.r.n. nausea and vomiting. Trilafon that is perphenazine 8 mg p.o. at bedtime scheduled, promethazine 25 mg per rectum q. 6 hours p.r.n. nausea and vomiting, and trazodone 50 mg p.o. at bedtime. ALLERGIES: No known drug allergies. DIET: Obese gentleman. Denies significant weight loss or gain in the preceding few weeks to months. FAMILY AND SOCIAL HISTORY: Lives in the community. Denies history of alcohol, tobacco, or illicit drug use or abuse. FAMILY HISTORY: Otherwise noncontributory. REVIEW OF SYSTEMS: No overt loss of consciousness. No new onset seizures. He denies gross hematochezia or melena. Denies gross hematuria or dysuria. He denies any history of easy bleeding or difficulty with coagulation after he bleeds. He has had a little bit of a nosebleed actually, in retrospect, he tells me, but he has been picking at his nostrils, he states. He denies heat or cold intolerance. Denies polydipsia or polyuria. Denied palpitations. Complete 13-system review of systems obtained. Pertinent positives and/or negatives as in body of history above, otherwise they are noncontributory. PHYSICAL EXAMINATION: VITAL SIGNS: On examination at presentation, the first vital signs, first temperature that I see was 98.6 degrees Fahrenheit. Pulse was 89 at presentation, respiratory rate 14, blood pressure 146/90, O2 sats were 99%, inspired oxygen concentration at that time was not recorded. When I stopped by to see him, he was 98%, actually on 2 liters nasal cannula. GENERAL: An elderly looking obese male, normocephalic, atraumatic, talking to me in full sentences without significant respiratory distress. HEAD, EYES, EARS, NOSE AND THROAT: He is anicteric. No conjunctival erythema. Oropharynx is moist. Mallampati #3 oropharynx. No gross jugular venous distention, no thyromegaly. He does have a large neck circumference. Grossly, there were no palpable lymph nodes in the supraclavicular or submandibular lymph node chains. LUNGS: Auscultation of both lung card were unremarkable. Lungs were clear bilaterally. HEART: Heart sounds 1 and 2 were heard. They were regular in rate and rhythm at the time of my evaluation, without rubs or murmurs. ABDOMEN: Soft. Bowel sounds are positive, nontender, no palpable hepatosplenomegaly. Protuberant. EXTREMITIES: Without overt digital clubbing or cyanosis and no pedal edema. Pedal pulses are 2+ bilaterally. NEUROLOGIC: Pupils equal, round, about 4 mm, reactive to light. Extraocular muscle movements are intact. He moves all 4 extremities spontaneously. The lead sewage plant operator to the right hand is perhaps a little weaker than the group to the left, otherwise no real focal deficits. Power is 5/5 bilaterally. No fasciculations, no spasticity. SKIN: Normal turgor, without overt cellulitis or rash. PSYCHIATRIC: His mood was normal and his affect was appropriate. LABORATORY DATA: From my review, white cell count 10,200, hemoglobin 15.7, hematocrit 44.3, platelet count 208. INR 1.22. Serum sodium 132, potassium 3.3, chloride 96, bicarbonate 20, BUN was 10, creatinine 0.9, glucose was 92. LDL cholesterol 64, triglycerides 152. Urinalysis was unremarkable. No cultures. CT scan of the head, no acute process. CT angio of the head and neck were also negative for any obvious vascular occlusion or stenosis. A 2D echocardiogram has been done, report is pending. Carotid Doppler studies are done, reports are pending. ASSESSMENT: 1. Acute cerebrovascular accident, status post TPA. 2. Acute encephalopathy. 3. Aphasia. 4. Obesity. 5. Possible sleep apnea. 6. History of hypertension. 7. History of hyperlipidemia. PLAN: We will continue to observe him in the intensive care unit post-TPA administrations for the first 24 hours. I will begin DVT prophylaxis with Lovenox to begin around 2200 hours tonight, post is 24 hours. I have strongly counseled evaluation in the Sleep Clinic as he probably does have untreated sleep apnea. He may have an element of obesity hypoventilation syndrome. We will continue neuro checks, fall precautions. Potassium will be replaced 40 mEq p.o. x 1. Weight loss has been strongly counseled. Continued tobacco abstinence has been encouraged. I see the mild metabolic acidosis at presentation. I do expect that should resolve on its own. He has been started on DVT prophylaxis. He will be started on GI prophylaxis. Flu and pneumonia vaccination will be addressed per protocol. Thank you very much for the consult, Dr. Edwards. We will follow along. We will make further recommendations as picture progresses/becomes clearer. Hopefully, he continues to improve. JOB# [id number] BAHMAN/DEB
[2018-09-16 06:33] LABS: BUN/Creatinine Ratio 13; Blood Urea Nitrogen 12 mg/dL (9-20); Calcium 8.5 mg/dL (8.4-10.2); Hemolysis Index 21
[2018-09-16] MEDS ORDERED: K-DUR PO ONE (08:58)
--- NOTE | 2018-09-16 09:00 | Progress Note ---
Assessment and Plan Assessment and plan: Patient is a 62 yo man with a history of hypertension, dyslipidemia and obesity who presented to [facility] ED with AMS, confusion and weakness. He was diagnosis with acute ichemic stroke and given tPA 6:51pm by Teleneurology on 09/14/18. * 09/15/18 Brain MRI wo contrast IMPRESSION: 1. No evidence of acute infarct or other acute intracranial abnormality. * Bilateral Carotid Duplex IMPRESSION: No hemodynamically significant stenosis by NASCET criteria. * CTA head Impression: No significant narrowing appreciated on this CTA of the head. Slight asymmetry seen in the distal PROTEOMICS SCIENTIST territory on the right, compared with the left-this finding may be a normal variant. * CTA neck IMPRESSION: No significant narrowing appreciated on this CTA of the neck. -Acute CVA rule out s/p tPA -Acute Encephalopathy, poa -Transient global amnesia (TGA) -Orthostatic dizziness -Hypokalemia: repleted Disposition; continue inpatient care, ECHO pending, repeat [address] head, if these are negative then d/c home History Interval history: Patient was seen and examined. Follow-up on current diagnosis of AMS. No overnight events reported to me. Patient denies any chest pain, shortness breath, nausea/vomiting or severe headaches. Imaging, nursing note, chart, labs and old chart reviewed. Discussed with patient. Hospitalist Physical - Physical exam Narrative exam: Gen: WDWN, NAD, Awake, Alert, Orientated HEENT: NCAT, EOMI, PERRL, OP Clear Neck: supple, no adenopathy, no thyromegaly, no JVD CVS/Heart: RRR, normal S1S2, pulses present bilaterally Chest/Lungs: CTA B, Symmetrical chest expansion, good air entry bilaterally GI/Abdomen: soft, NTND, good bowel sounds, no guarding or rebound /Bladder: no suprapubic tenderness, no CVA or paraspinal tenderness Extermity/Skin: no c/c/e, no obvious rash MSK: FROM x 4 Neuro: CN 2-12 grossly intact, no new focal deficits Psych: calm - Constitutional Vitals: Temp Pulse Resp BP Pulse Ox 98.0 F 58 L 18 118/61 96 09/16/18 08:34 09/16/18 08:34 09/16/18 08:34 09/16/18 08:34 09/16/18 08:34 General appearance: Present: no acute distress, well-nourished Results - Labs CBC & Chem 7: 09/14/18 19:38 09/16/18 04:07 Labs: Laboratory Last Values WBC 10.2 K/mm3 (4.5-11.0) 09/14/18 19:38 RBC 4.84 M/mm3 (3.65-5.03) 09/14/18 19:38 Hgb 15.7 gm/dl (11.8-15.2) H 09/14/18 19:38 Hct 44.3 % (35.5-45.6) 09/14/18 19:38 MCV 92 fl (84-94) 09/14/18 19:38 MCH 33 pg (28-32) H 09/14/18 19:38 MCHC 36 % (32-34) H 09/14/18 19:38 RDW 12.9 % (13.2-15.2) L 09/14/18 19:38 Plt Count 208 K/mm3 (140-440) 09/14/18 19:38 Lymph % (Auto) 18.1 % (13.4-35.0) 09/14/18 19:38 [place] % (Auto) 8.9 % (0.0-7.3) H 09/14/18 19:38 Eos % (Auto) 0.8 % (0.0-4.3) 09/14/18 19:38 Baso % (Auto) 0.4 % (0.0-1.8) 09/14/18 19:38 Lymph # 1.9 K/mm3 (1.2-5.4) 09/14/18 19:38 [place] # 0.9 K/mm3 (0.0-0.8) H 09/14/18 19:38 Eos # 0.1 K/mm3 (0.0-0.4) 09/14/18 19:38 Baso # 0.0 K/mm3 (0.0-0.1) 09/14/18 19:38 Seg Neutrophils % 71.8 % (40.0-70.0) H 09/14/18 19:38 Seg Neutrophils # 7.4 K/mm3 (1.8-7.7) 09/14/18 19:38 PT 15.1 Sec. (12.2-14.9) H 09/14/18 19:38 INR 1.22 (0.87-1.13) H 09/14/18 19:38 APTT 32.4 Sec. (24.2-36.6) 09/14/18 19:38 24.3 Sec. (15.1-19.6) H 09/14/18 19:38 Sodium 140 mmol/L (137-145) D 09/16/18 04:07 Potassium 3.5 mmol/L (3.6-5.0) L 09/16/18 04:07 Chloride 106.4 mmol/L (98-107) 09/16/18 04:07 Carbon Dioxide 22 mmol/L (22-30) 09/16/18 04:07 15 mmol/L 09/16/18 04:07 BUN 12 mg/dL (9-20) 09/16/18 04:07 0.9 mg/dL (0.8-1.5) 09/16/18 04:07 Estimated GFR > 60 ml/min 09/16/18 04:07 13 % 09/16/18 04:07 Glucose 110 mg/dL (75-100) H 09/16/18 04:07 POC Glucose 78 (70-105) 09/14/18 18:46 Calcium 8.5 mg/dL (8.4-10.2) 09/16/18 04:07 < 0.010 ng/mL (0.00-0.029) 09/14/18 19:38 Triglycerides 152 mg/dL (2-149) H 09/15/18 09:45 Cholesterol 115 mg/dL (50-199) 09/15/18 09:45 64 mg/dL (50-130) 09/15/18 09:45 31 mg/dL (40-59) L 09/15/18 09:45 3.70 % 09/15/18 09:45 Colorless (Yellow) 09/14/18 20:35 Clear (Clear) 09/14/18 20:35 7.0 (5.0-7.0) 09/14/18 20:35 Ur Specific [place] 1.025 (1.003-1.030) 09/14/18 20:35 <15 mg/dl mg/dL (Negative) 09/14/18 20:35 Neg mg/dL (Negative) 09/14/18 20:35 Neg mg/dL (Negative) 09/14/18 20:35 Neg (Negative) 09/14/18 20:35 Neg (Negative) 09/14/18 20:35 Neg (Negative) 09/14/18 20:35 < 2.0 mg/dL (<2.0) 09/14/18 20:35 Ur Leukocyte Esterase Neg (Negative) 09/14/18 20:35 < 1.0 /HPF (0.0-6.0) 09/14/18 20:35 2.0 /HPF (0.0-6.0) 09/14/18 20:35 Active Medications - Current Medications Current Medications: Generic Name Dose Route Start Last Admin Trade Name Freq PRN Reason Stop Dose Admin Acetaminophen 650 mg 09/14/18 21:07 09/14/18 22:16 Tylenol PO 650 mg Q4H PRN Administration Pain, Mild (1-3) Aspirin 325 mg 09/15/18 20:00 09/15/18 21:21 Aspirin PO 325 mg QDAY RANI Administration Atorvastatin Calcium 40 mg 09/14/18 22:00 09/15/18 21:21 Lipitor PO 40 mg QHS RANI Administration Bisacodyl 10 mg 09/14/18 21:07 Dulcolax [place] QDAY PRN Constipation Enoxaparin Sodium 40 mg 09/15/18 22:00 09/15/18 21:21 Lovenox SUB-Q 40 mg QDAY@2200 RANI Administration Latanoprost 1 drops 09/15/18 22:00 09/15/18 21:22 Latanoprost 0.005% OU 1 drops QHS RANI Administration Magnesium Hydroxide 30 ml 09/14/18 21:07 Milk Of Magnesia PO Q4H PRN Constipation Metoclopramide HCl 10 mg 09/14/18 21:07 Reglan PO Q6H PRN Nausea And Vomiting Miscellaneous Medication 1 drop 09/14/18 22:00 09/15/18 21:22 Carteolol Hcl [Carteolol Hcl 1%] OP 1 drop BID RANI Administration Ondansetron HCl 4 mg 09/14/18 21:07 Zofran IV Q8H PRN Nausea And Vomiting Perphenazine 8 mg 09/14/18 22:00 09/15/18 21:21 Trilafon PO 8 mg HS RANI Administration Promethazine HCl 25 mg 09/14/18 21:07 Phenergan [place] Q6H PRN Nausea And Vomiting Sodium Chloride 10 ml 09/14/18 21:07 Sodium Chloride Flush Syringe 10 Ml IV PRN PRN LINE FLUSH Trazodone HCl 50 mg 09/14/18 22:00 09/15/18 21:21 Desyrel PO 50 mg HS RANI Administration
[2018-09-16] MEDS: ASPIRIN PO SCH (10:02)
[2018-09-16] MEDS: CARTEOLOL HCL OP SCH ×2 (10:04→23:33)
--- NOTE | 2018-09-16 14:08 | Progress Note ---
Assessment and Plan atient alert, awake. No complaint of chest pain or shortness of breath or cough. Resting on room air. O2 saturation 97%.No history of smoking. With history of stroke and altered mental status Obtaining chest xray to rule out aspiration. - Patient Problems (1) Altered mental state Current Visit: Yes Status: Acute Qualifiers: Altered mental status type: unspecified Qualified Code(s): R41.82 - Altered mental status, unspecified Plan to address problem: Management as primary care. (2) CVA (cerebral vascular accident) Current Visit: Yes Status: Acute Qualifiers: CVA mechanism: unspecified Qualified Code(s): I63.9 - Cerebral infarction, unspecified Plan to address problem: Management as per neurology. (3) Encephalopathy Current Visit: Yes Status: Acute Plan to address problem: Management as per neurology. (4) Hypertensive urgency Current Visit: Yes Status: Acute Plan to address problem: Management as per primary care. Subjective Date of service: 09/16/18 Interval history: Patient alert, awake. No complaint of chest pain or shortness of breath or cough. Resting on room air. O2 saturation 97%.No history of smoking. With history of stroke and altered mental status Obtaining chest xray to rule out aspiration. Objective Vital Signs - 12hr 09/16/18 09/16/18 09/16/18 04:24 06:00 08:34 Temperature 98.0 F 98.0 F Pulse Rate 61 58 L 58 L Pulse Rate [ Apical] Pulse Rate [ Left Dorsalis Pedis] Pulse Rate [ Left Radial] Pulse Rate [ Right Dorsalis Pedis] Pulse Rate [ Right Radial] Respiratory 18 18 Rate Blood Pressure 116/65 118/61 O2 Sat by Pulse 95 96 Oximetry 09/16/18 09/16/18 10:00 11:25 Temperature 97.8 F Pulse Rate 62 54 L Pulse Rate [ 63 Apical] Pulse Rate [ 63 Left Dorsalis Pedis] Pulse Rate [ 63 Left Radial] Pulse Rate [ 63 Right Dorsalis Pedis] Pulse Rate [ 63 Right Radial] Respiratory 18 18 Rate Blood Pressure 111/62 114/62 O2 Sat by Pulse 98 97 Oximetry Constitutional: no acute distress, alert Eyes: non-icteric Neck: supple, no lymphadenopathy Effort: normal Ascultation: Bilateral: clear Cardiovascular: regular rate and rhythm Gastrointestinal: normoactive bowel sounds Integumentary: normal, rash Extremities: no cyanosis, no edema Neurologic: normal mental status, pupils equal and round Psychiatric: mood appropriate CBC and BMP: 09/14/18 19:38 09/16/18 04:07 ABG, PT/INR, D-dimer: PT/INR, D-dimer PT 15.1 Sec. (12.2-14.9) H 09/14/18 19:38 INR 1.22 (0.87-1.13) H 09/14/18 19:38 Abnormal lab findings: Abnormal Labs 09/14/18 09/14/18 09/14/18 19:38 19:38 19:38 Hgb 15.7 H MCH 33 H MCHC 36 H RDW 12.9 L [place] % (Auto) 8.9 H [place] # 0.9 H Seg Neutrophils % 71.8 H PT 15.1 H INR 1.22 H Thrombin Time Sodium 132 L Potassium 3.3 L Chloride 95.8 L Carbon Dioxide 20 L Glucose Triglycerides HDL Cholesterol 09/14/18 09/15/18 09/16/18 19:38 09:45 04:07 Hgb MCH MCHC RDW [place] % (Auto) [place] # Seg Neutrophils % PT INR Thrombin Time 24.3 H Sodium Potassium 3.5 L Chloride Carbon Dioxide Glucose 110 H Triglycerides 152 H HDL Cholesterol 31 L
--- NOTE | 2018-09-16 20:56 | Cat Scan Report ---
CT HEAD WITHOUT CONTRAST INDICATION / CLINICAL INFORMATION: ams post tpa, CT scan 24 hr post tpa follow up scan. TECHNIQUE: All CT scans at this location are performed using CT dose reduction for ALARA by means of automated e xposure control. COMPARISON: Head CT 09/14/2018 and MRI brain 09/15/2018. FINDINGS: HEMORRHAGE: No evidence of intracranial hemorrhage or extra-axial fluid collection. EXTRA-AXIAL SPACES: Cortical sulci, sylvian fissures and basilar cisterns have an unremarkable appear ance. VENTRICULAR SYSTEM: The ventricular system is of normal size and configuration. CEREBRAL PARENCHYMA: No areas of abnormal brain parenchymal attenuation are identified. There is no i ndication of recent infarction. MIDLINE SHIFT OR HERNIATION: There is no mass effect. CEREBELLUM / BRAINSTEM: Brainstem and cerebellum have an unremarkable appearance. INTRACRANIAL VESSELS:No abnormalities are identified on this noncontrast head CT. ORBITS: The orbits have an unremarkable appearance. SOFT TISSUES of HEAD: No significant abnormality. CALVARIUM: Evaluation of bone windows reveals no abnormalities. PARANASAL SINUSES / MASTOID AIR CELLS: Paranasal sinuses are free from inflammatory mucosal disease. Mastoid air cells are normally pneumatized. IMPRESSION: 1. No acute intracranial abnormality. No interval change. Signer Name: Jatinder Diaz MD Signed: 09/16/2018 8:52 PM Workstation Name: [id number]
[2018-09-16] MEDS: DESYREL PO SCH (23:15)
[2018-09-16] MEDS: TRILAFON PO SCH (23:32)
[2018-09-16] MEDS: LATANOPROST 0.005% OU SCH (23:33)
--- NOTE | 2018-09-17 08:51 | Discharge Summary ---
Providers - Providers Date of Admission: 09/14/18 21:07 Date of discharge: 09/17/18 Attending physician: ALICIA SALINAS 09/14/18 Consult to Physician [CONS] Routine Comment: Consulting Provider: SHADY FOX Physician Instructions: Reason For Exam: cva 09/14/18 21:07 Occupational Therapy Evaluate and Treat [CONS] Routine Comment: Reason For Exam: Neuro deficits Physical Therapy Evaluation and Treat [CONS] Routine Comment: Reason For Exam: Neuro deficits 09/15/18 12:27 Consult to Physician [CONS] Routine Comment: Consulting Provider: SHEILA WINN Physician Instructions: Reason For Exam: CRITICAL CARE [facility] Condition: Stable Hospital course: Patient is a 62 yo man (who states he is homeless but has somewhere to live) with a history of hypertension, dyslipidemia and obesity who presented to [facility] ED with AMS, confusion and weakness. He was diagnosis with acute ichemic stroke and given tPA 6:51pm by Teleneurology on 09/14/18. * 09/15/18 Brain MRI wo contrast IMPRESSION: 1. No evidence of acute infarct or other acute intracranial abnormality. * Bilateral Carotid Duplex IMPRESSION: No hemodynamically significant stenosis by NASCET criteria. * CTA head Impression: No significant narrowing appreciated on this CTA of the head. Slight asymmetry seen in the distal [employer] territory on the right, compared with the left-this finding may be a normal variant. * CTA neck IMPRESSION: No significant narrowing appreciated on this CTA of the neck. * 2D ECHO conclusions: Mild concentric LVH, estimated EF 50-55%, abnormal LV diastolic function is observed, a patent foramen ovale is demonstrated by agitated saline contrast, there in no pericardial effusion. The RV global systolic function is normal Discharge Diagnoses: -Ruled out Acute CVA s/p tPA -Acute Metabolic Encephalopathy, poa -Hyponatremia, poa resolved -Transient global amnesia (TGA) -Orthostatic dizziness -Hypokalemia: repleted -Patent foramen Ovale: treat with antiplt and referral to CT surgeon, none here Disposition: DC-01 TO HOME OR SELFCARE Time spent for discharge: 35 minutes Core Measure Documentation - Palliative Care Palliative Care/ Comfort Measures: Not Applicable - Core Measures Any of the following diagnoses?: none - VTE Discharge Requirements Deep Vein Thrombosis/Pulmonary Embolism Present on Admission: No Has pt received <5 days of overlap therapy or INR<2.0: No Anticoagulant overlap therapy prescribed at discharge: No Contraindication No Overlap Therapy order at DC: Not Indicated Exam - Physical Exam Narrative exam: Gen: WDWN, NAD, Awake, Alert, Orientated HEENT: NCAT, EOMI, PERRL, OP Clear Neck: supple, no adenopathy, no thyromegaly, no JVD CVS/Heart: RRR, normal S1S2, pulses present bilaterally Chest/Lungs: CTA B, Symmetrical chest expansion, good air entry bilaterally GI/Abdomen: soft, NTND, good bowel sounds, no guarding or rebound /Bladder: no suprapubic tenderness, no CVA or paraspinal tenderness Extermity/Skin: no c/c/e, no obvious rash MSK: FROM x 4 Neuro: CN 2-12 grossly intact, no new focal deficits Psych: calm - Constitutional Vitals: Temp Pulse Resp BP Pulse Ox 98.2 F 65 20 132/90 95 09/17/18 06:45 09/17/18 06:45 09/17/18 06:45 09/17/18 06:45 09/17/18 06:45 Plan Activity: other (no strenous activity unless cleared by PCP) Diet: low salt Additional Instructions: [facility]. Address: [address] [address], [place] [address]. Phone: . Website: [email or web address] Follow up with: [facility] MARIEL [Primary Care Provider] - 3-5 Days SHEILA WINN MD [Staff Physician] - 7 Days JUSTIN TORRES MD [Staff Physician] - 7 Days Prescriptions: AtorvaSTATin [Lipitor] 40 mg PO QHS #30 tablet Aspirin 325 mg PO QDAY #30 tablet Metoprolol [Lopressor] 25 mg PO BID #30 tablet
[2018-09-17] MEDS: ASPIRIN PO SCH (09:11)
[2018-09-17] MEDS: CARTEOLOL HCL OP SCH (09:13)
[2018-09-17 13:09] VITALS: BP 125/73
--- NOTE | 2018-09-17 18:33 | Progress Note ---
Assessment and Plan atient alert, awake. No complaint of chest pain or shortness of breath or cough. Resting on room air. O2 saturation 97%.No history of smoking. Chest xray not done. - Patient Problems (1) Altered mental state Status: Acute Qualifiers: Altered mental status type: unspecified Qualified Code(s): R41.82 - Altered mental status, unspecified Plan to address problem: Management as primary care. (2) CVA (cerebral vascular accident) Status: Acute Qualifiers: CVA mechanism: unspecified Qualified Code(s): I63.9 - Cerebral infarction, unspecified Plan to address problem: Management as per neurology. (3) Encephalopathy Status: Acute Plan to address problem: Management as per neurology. (4) Hypertensive urgency Status: Acute Plan to address problem: Management as per primary care. Subjective Date of service: 09/17/18 Interval history: Patient alert, awake. No complaint of chest pain or shortness of breath or cough. Resting on room air. O2 saturation 97%.No history of smoking. Chest xray not done. Objective Vital Signs - 12hr 09/17/18 09/17/18 06:45 12:23 Temperature 98.2 F 98.2 F Pulse Rate 65 54 L Respiratory 20 18 Rate Blood Pressure 132/90 125/73 O2 Sat by Pulse 95 98 Oximetry Constitutional: no acute distress, alert Eyes: non-icteric Neck: supple, no lymphadenopathy Effort: normal Ascultation: Bilateral: clear Cardiovascular: regular rate and rhythm Gastrointestinal: normoactive bowel sounds Integumentary: normal, rash Extremities: no cyanosis, no edema Neurologic: normal mental status, pupils equal and round Psychiatric: mood appropriate CBC and BMP: 09/14/18 19:38 09/16/18 04:07 ABG, PT/INR, D-dimer: PT/INR, D-dimer PT 15.1 Sec. (12.2-14.9) H 09/14/18 19:38 INR 1.22 (0.87-1.13) H 09/14/18 19:38 Abnormal lab findings: Abnormal Labs 09/14/18 09/14/18 09/14/18 19:38 19:38 19:38 Hgb 15.7 H MCH 33 H MCHC 36 H RDW 12.9 L [place] % (Auto) 8.9 H [place] # 0.9 H Seg Neutrophils % 71.8 H PT 15.1 H INR 1.22 H Thrombin Time Sodium 132 L Potassium 3.3 L Chloride 95.8 L Carbon Dioxide 20 L Glucose Triglycerides HDL Cholesterol 09/14/18 09/15/18 09/16/18 19:38 09:45 04:07 Hgb MCH MCHC RDW [place] % (Auto) [place] # Seg Neutrophils % PT INR Thrombin Time 24.3 H Sodium Potassium 3.5 L Chloride Carbon Dioxide Glucose 110 H Triglycerides 152 H HDL Cholesterol 31 L
== END 2018-09-17 21:10 | disposition home or self-care (01) | DRG 70 ==
LOC: ED 18:07 → CC1 21:07 → 4A 09-15 18:52 → 3A 09-16 13:41
PROVIDERS: ADMIT Internal Medicine; ATTEND Internal Medicine
DX: G45.4 Transient global amnesia (principal); G93.41 Metabolic encephalopathy; E87.1 Hypo-osmolality and hyponatremia; I51.0 Cardiac septal defect, acquired; R47.01 Aphasia; E87.6 Hypokalemia; I16.0 Hypertensive urgency; F20.9 Schizophrenia, unspecified; I10 Essential (primary) hypertension; E66.9 Obesity, unspecified; Z68.30 Body mass index [BMI] 30.0-30.9, adult; Z79.899 Other long term (current) drug therapy; Z71.3 Dietary counseling and surveillance; Z82.3 Family history of stroke; Z83.3 Family history of diabetes mellitus
CPT/HCPCS: 36415; 70450; 70496; 70498; 70551; 80048; 80061; 81001; 82962; 84484; 85025; 85610; 85670; 85730; 93005; 93010; 93306; 93880; 94760; 96365; 96366; 96375; G0378; A9270-GY; J1650; J2997; J7050; Q9967